=== PATIENT | female | born 1965 | race Caucasian/White ===

== ENCOUNTER → 2018-07-17 09:16 | Outpatient (CLI) | payer OTHER, MEDICAID, SELFPAY ==
--- NOTE | 2018-07-17 | DI.US.S_ITS ---
ULTRASOUND OF LEFT BREAST: 07/17/2018 CLINICAL: Left breast palpable area. Comparison is made to exams dated: 07/17/2018 mammogram, 03/23/2016 ultrasound, 08/05/2015 mammogram, 08/05/2015 ultrasound biopsy, 07/29/2015 ultrasound, and 07/29/2015 mammogram - [facility]. Color flow ultrasound of the left breast was performed on the areas of interest. Moyer scale images of the real-time examination were reviewed. IMPRESSION: NEGATIVE There is no sonographic evidence of malignancy. There is no mammographic or sonographic abnormality seen in the left breast to correspond with the palpable abnormality and pain, however, clinical followup is recommended. Return to annual mammogram screening schedule is recommended. This exam was interpreted at Station ID: [id number]. Electronically Signed By: Vivian Barber M.D. lk/:07/17/2018 17:15:36 letter sent: Clinical Evaluation Ultrasound BI-RADS: 1 Negative
--- NOTE | 2018-07-17 | DI.MG.S_ITS ---
BILATERAL DIGITAL DIAGNOSTIC MAMMOGRAM 3D/2D: 07/17/2018 CLINICAL: Left tenderness, itchiness and lump. Comparison is made to exams dated: 08/05/2015 mammogram and 07/29/2015 mammogram - [facility]. The tissue of both breasts is extremely dense, which lowers the sensitivity of mammography. No significant masses, calcifications, or other findings are seen in either breast. IMPRESSION: INCOMPLETE: NEEDS ADDITIONAL IMAGING EVALUATION There is no mammographic abnormality seen in the left breast to correspond with the palpable abnormality and pain, however, targeted ultrasound of the left breast is recommended and will be performed immediately following this exam. This exam was interpreted at Station ID: [id number]. NOTE: For mammograms, a report in lay terms will be sent to the patient. Approximately 15% of breast malignancies will not be visualized mammographically. In the management of a palpable breast mass, a negative mammogram must not discourage biopsy of a clinically suspicious lesion. Electronically Signed By: Vivian Barber M.D. lk/:07/17/2018 09:54:40 letter sent: Additional Imaging Needed ACR BI-RADS Category 0: Incomplete [id number]
== END ==
PROVIDERS: Visit Provider Nurse Practitioner Family
DX: R92.8 Other abnormal and inconclusive findings on diagnostic imaging of breast (principal); N64.4 Mastodynia; N64.59 Other signs and symptoms in breast; L29.9 Pruritus, unspecified
CPT/HCPCS: 76642; 77066; G0279